=== PATIENT | female | born 1970 | race African-American/Black ===

== ENCOUNTER 2024-02-28 17:02 | Emergency (ER) | payer OTHER ==
[~2024-02-28] VITALS: Ht 162.6 cm; Wt 57.6 kg
[2024-02-28 18:14] VITALS: TEMP 98.2
[2024-02-28] MEDS ORDERED: diphenhydrAMINE HCL 50 MG/ML VIAL ONE (18:53)
[2024-02-28] MEDS ORDERED: ACETAMINOPHEN ES 500 MG TABLET ONE ×2 (18:53→18:58)
[2024-02-28] MEDS ORDERED: PROCHLORPERAZINE EDISYLATE 10 MG/2 ML VIAL ONE (18:53)
[2024-02-28] MEDS: PROCHLORPERAZINE EDISYLATE 10 MG/2 ML VIAL IVP ONE (19:19)
[2024-02-28] MEDS: diphenhydrAMINE HCL 50 MG/ML VIAL IV ONE (19:19)
[2024-02-28] MEDS: ACETAMINOPHEN ES 500 MG TABLET PO ONE (19:19)
[2024-02-28] MEDS: IV NS 0.9% 1,000 ML BAG IV ONE (19:19)
[2024-02-28 20:56] VITALS: BP 128/7; O2SAT 99
== END 2024-02-28 20:56 | disposition home or self-care (01) ==
LOC: ER 17:02
DX: R51.9 Headache, unspecified (principal)
CPT/HCPCS: 99284; 96374; 96361; 96375; 82962; J0780; J1200; J7030